=== PATIENT | female | born 1990 | race Caucasian/White ===

== ENCOUNTER 2017-08-18 12:32 | Emergency (ER) | payer OTHER ==
[~2017-08-18] VITALS: Ht 154.9 cm; Wt 69.4 kg
--- OUTSIDE RECORDS SUMMARY | ~2017-08-18 | XMS ---
Demographics + + + | Address | [address] | | | [place] [address] | + + + | Preferred Language | Unknown | + + + | Marital Status | Unknown | + + + | Restoration Affiliation | Unknown | + + + | Race | Unknown | + + + | Ethnic Group | Unknown | + + + Author + + + | Author | [facility] | + + + | Organization | [facility] | + + + | Address | [address] | | | [place] [address] | + + + | Phone | | + + + Care Team Providers + + + + | Care Pulverizer Feeder Name | Role | Phone | + + + + Unavailable | Unavailable | + + + + PROBLEMS + + + + + + + + | Type | Condition | ICD9-CM | [id number] | Onset | Condition | SNOMED | | | | Code | Code | Dates | Status | Code | + + + + + + + + | Problem | Depression | | F41.8 | | Active | [id number] | | | with | | | | | | | | anxiety | | | | | | + + + + + + + + | Problem | Acute | G44.319 | | | Active | | | | headache | | | | | | | | secondary | | | | | | | | to trauma | | | | | | + + + + + + + + | Problem | Primary | | F51.01 | | Active | [id number] | | | insomnia | | | | | | + + + + + + + + | Assessment | Depression | | F41.8 | 19 Apr, | Active | [id number] | | | with | | | 2017 | | | | | anxiety | | | | | | + + + + + + + + | Problem | Radiculopa | M54.17 | | | Active | [id number] | | | thy of | | | | | | | | lumbosacra | | | | | | | | l region | | | | | | + + + + + + + + | Problem | Migraine | | G43.509 | | Active | | | | aura, | | | | | | | | persistent | | | | | | + + + + + + + + ALLERGIES + + + + +--------+ | Substance | Reaction | Event Type | Date | Status | + + + + +--------+ | Codeine | hives | Drug Allergy | Dec, | Active | + + + + +--------+ | Vicodin | hives | Drug Allergy | Dec, | Active | + + + + +--------+ | Percocet | throat swelling | Drug Allergy | Dec, | Active | + + + + +--------+ | Ibuprofen | throat swells | Drug Allergy | Dec, | Active | + + + + +--------+ SOCIAL HISTORY No smoking Hx information available PLAN OF CARE VITAL SIGNS + + + + | Height | 61 in | 2016-12-29 | + + + + | Weight | 170.6 lbs | 2016-12-29 | + + + + | BMI | 32.23 kg/m2 | 2016-12-29 | + + + + | Temperature | 98.5 degrees Fahrenheit | 2016-12-29 | + + + + | Heart Rate | 87 /min | 2016-12-29 | + + + + | Blood pressure systolic | 119 mm Hg | 2016-12-29 | + + + + | Blood pressure diastolic | 81 mm Hg | 2016-12-29 | + + + + MEDICATIONS + + + + +--------+ + +--------+ | Medicati | Instruct | Dosage | Frequenc | Start | End Date | Duration | Status | | on | ions | | y | Date | | | | + + + + +--------+ + +--------+ | Sertrali | Orally | 1 tablet | 24h | | | 15 | Active | | ne HCl | Once a | | | | | day(s) | | | 25 MG | day | | | | | | | + + + + +--------+ + +--------+ | Ultram | Oral bid | 1 tab | 12h | | | | Active | | 50mg | | | | | | | | + + + + +--------+ + +--------+ RESULTS No Results PROCEDURES + + + + + | Procedure | Date Ordered | Related Diagnosis | Body Site | + + + + + | Est Level IV | December 29, 2016 | | | | Extended | | | | + + + + + IMMUNIZATIONS No Known Immunizations"
--- OUTSIDE RECORDS SUMMARY | ~2017-08-18 | XMS ---
Demographics + + + | Address | [address] | | | [place] [address] | + + + | Preferred Language | Unknown | + + + | Marital Status | Unknown | + + + | Temple Affiliation | Unknown | + + + | Race | Unknown | + + + | Ethnic Group | Unknown | + + + Author + + + | Author | [facility] | + + + | Organization | [facility] | + + + | Address | [address] | | | [place] [address] | + + + | Phone | | + + + Care Team Providers + + + + | Care Program Director Scouting Name | Role | Phone | + + + + Unavailable | Unavailable | + + + + PROBLEMS +---------+ + + +--------+ + + | Type | Condition | ICD9-CM | [id number] | Onset | Condition | SNOMED | | | | Code | Code | Dates | Status | Code | +---------+ + + +--------+ + + | Problem | Depression | | F41.8 | | Active | [id number] | | | with | | | | | | | | anxiety | | | | | | +---------+ + + +--------+ + + | Problem | Acute | G44.319 | | | Active | | | | headache | | | | | | | | secondary | | | | | | | | to trauma | | | | | | +---------+ + + +--------+ + + | Problem | Primary | | F51.01 | | Active | [id number] | | | insomnia | | | | | | +---------+ + + +--------+ + + | Problem | Radiculopa | M54.17 | | | Active | [id number] | | | thy of | | | | | | | | lumbosacra | | | | | | | | l region | | | | | | +---------+ + + +--------+ + + | Problem | Migraine | | G43.509 | | Active | | | | aura, | | | | | | | | persistent | | | | | | +---------+ + + +--------+ + + ALLERGIES Unknown Allergies SOCIAL HISTORY No smoking Hx information available PLAN OF CARE VITAL SIGNS MEDICATIONS Unknown Medications RESULTS No Results PROCEDURES No Known procedures IMMUNIZATIONS No Known Immunizations"
[~2017-08-18 12:32] MED LIST: ACETAMINOPHEN325 M1 PO; AMOXICILLIN500 MG PO; AMOXICILLIN875 MG PO; CIPRO500 MG PO; EPIPEN 2-P0.3 MG/0.3 IM; HYDROCOD-HOMAT 55 ML PO; PREDNISONE20 MG PO; PRENATAL 19 TA1 EACH PO; PRENATAL FORMU1 EACH PO; PROZAC20 MG PO; ROBAXIN-750750 MG PO; TRAMADOL HCL50 MG PO; TYLENOL EXTRA500 MG PO; ULTRAM50 MG PO; VITAMIN B-1250 MCG PO; WELLBUTRIN SR100 MG PO; WELLBUTRIN SR150 MG PO; ZOFRAN ODT8 MG PO; ZOFRAN4 MG PO
== END 2017-08-18 12:55 | disposition home or self-care (01) ==
LOC: ED 12:32
DX: R21 Rash and other nonspecific skin eruption (principal)

== ENCOUNTER 2018-07-16 00:57 | Emergency (ER) | payer OTHER ==
[~2018-07-16] VITALS: Ht 157.5 cm; Wt 82.5 kg
--- OUTSIDE RECORDS SUMMARY | 2018-07-16 01:02 | XMS ---
PreManage Notification: ZEE ARREGUIN Security Financial Planner Events No recent Security Events currently on file CRITERIA MET - Group Notification - [facility] - Has Care Guidelines - [facility] - 2 Visits in 30 Days CARE PROVIDERS TUYET WHITTEN Primary Care 12/11/2016-Current PHONE: [phone] Guidelines Source: [facility] Guidelines Date: 03/18/2017 Care Coordination: ENCOURAGE PATIENT TO USE PCP FOR FOLLOW UP AND NON-EMERGENT PROBLEMS. GIVE PATIENT THIS SHIM PLUG CUTTER NAME AND NUMBER FOR HELP AND QUESTIONS. 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 NOTE: Visits indicate total known visits. ED/UCC VISIT TRACKING (12 MO.) 07/16/2018 00:58 LUIGI Lennon TYPE: Emergency COMPLAINT: - 17 WEEK PREG-BACK/CRAMPIN 07/07/2018 15:45 LUIG[facility] Lennon TYPE: Emergency COMPLAINT: - L FOOT PAIN/INJURY/MSE TO CLINIC DIAGNOSES: - Pain in left foot 01/30/2018 21:40 [facility] Alana NOEL TYPE: Emergency DIAGNOSES: - poss misscariage (14-16wks) - Right lower quadrant pain - Abnormal uterine and vaginal bleeding, unspecified - Left lower quadrant pain - Threatened Miscarriage 11/27/2017 01:03 [facility] [place] TYPE: Emergency COMPLAINT: - R SHOULDER PAIN, BACK PAIN/NO INJURY DIAGNOSES: - Dizziness and giddiness - Syncope and collapse - Allergy status to analgesic agent status - Allergy status to narcotic agent status 08/18/2017 12:32 [facility] [place] TYPE: Emergency COMPLAINT: - RASH DIAGNOSES: - Rash and other nonspecific skin eruption INPATIENT VISIT TRACKING (12 MO.) No inpatient visits to display in this time frame [email or web address]
[2018-07-16] MEDS ORDERED: FIORINAL 50-321 EACH PO (01:08)
[2018-07-16] MEDS ORDERED: PRENATAL 19 TA1 EAC1 PO (01:08)
[2018-07-16] MEDS ORDERED: CEPHALEXIN500 MG PO (03:55)
== END 2018-07-16 04:07 | disposition home or self-care (01) ==
LOC: ED 00:57
DX: O23.42 Unspecified infection of urinary tract in pregnancy, second trimester (principal); O16.2 Unspecified maternal hypertension, second trimester; O99.89 Other specified diseases and conditions complicating pregnancy, childbirth and the puerperium; G43.909 Migraine, unspecified, not intractable, without status migrainosus; Z88.5 Allergy status to narcotic agent; Z88.8 Allergy status to other drugs, medicaments and biological substances; Z79.899 Other long term (current) drug therapy; Z3A.17 17 weeks gestation of pregnancy
CPT/HCPCS: 80053; 81001; 85025; 87077; 87088; 87186; 96361; 96374; 99283; J0696; J7030

== ENCOUNTER 2018-12-22 00:05 | Inpatient (IN) | payer OTHER ==
[~2018-12-22] VITALS: Ht 154.9 cm; Wt 91.0 kg
[~2018-12-22 00:05] MED LIST changes: +CEPHALEXIN500 MG PO; +FIORINAL 50-321 EACH PO; +PRENATAL 19 TA1 EAC1 PO
--- NOTE | 2018-12-22 07:05 | PR ---
[facility] [address] [facility] [place] [address] Signed Progress Notes IP Datetime Report Generated by CPN: 12/22/2018 07:05 PROGRESS NOTES: [id number] Impression: Normal progression of labor Procedures: Artificial ROM Plan: Continue present management; Anticipate Vaginal Delivery VITAL SIGNS: [id number] Vital Signs: Reviewed; Within Normal Limits VS Notable Details: Q 3" contractions but no cervical changes and high presenting part. EXAM: [id number] Dilatation: 5.0 Effacement: 50 Station: -3 Uterine Contractions: every 2-3 minutes MEMBRANES: [id number] Pooling: Negative Membrane Status: Ruptured Amniotic Fluid Color: Clear ROM Note: AROM without difficulty Comments: Contractions getting uncomfortable, would like Epidural - ordered Fetus A: [id number] FHR Baseline: 145 Variability: Moderate 6-25bpm Accelerations: 15X15 Decelerations: None FHR Category: Category I Presentation: Vertex Fetus B: [id number] Signing Physician: Jose Aceves MD Copies: ~ *Electronically Signed* 12/22/18 0705 JOSE ACEVES MD PATIENT NAME: ZEE ARREGUIN PROGRESS NOTE DATE OF : [birth year] PHYSICIAN: JOSE ACEVES MD RPT #: [id number] REPORT IS CONFIDENTIAL AND NOT TO BE RELEASED WITHOUT AUTHORIZATION
--- NOTE | 2018-12-22 09:20 | PR ---
[facility] [address] [facility] [place], [place] [address] Signed Progress Notes IP Datetime Report Generated by CPN: 12/22/2018 09:20 PROGRESS NOTES: [id number] Impression: Normal progression of labor Procedures: Artificial ROM Plan: Continue present management; Anticipate Vaginal Delivery VITAL SIGNS: [id number] Vital Signs: Reviewed; Within Normal Limits VS Notable Details: Q 3" contractions but no cervical changes and high presenting part. EXAM: [id number] Dilatation: 9.0 Effacement: 90 Station: -1 Uterine Contractions: every 2-3 minutes MEMBRANES: [id number] Pooling: Negative Membrane Status: Intact ROM Note: AROM without difficulty Comments: Comfortable with Intrathecal, expect delivery soon. Fetus A: [id number] FHR Baseline: 140 Variability: Moderate 6-25bpm Accelerations: 15X15 Decelerations: None FHR Category: Category I Presentation: Vertex Fetus B: [id number] Signing Physician: Jose Aceves MD Copies: ~ *Electronically Signed* 12/22/18 0920 JOSE ACEVES MD PATIENT NAME: ZEE ARREGUIN PROGRESS NOTE DATE OF : [birth year] PHYSICIAN: JOSE ACEVES MD RPT #: [id number] REPORT IS CONFIDENTIAL AND NOT TO BE RELEASED WITHOUT AUTHORIZATION
--- NOTE | 2018-12-23 09:01 | PR ---
[facility] [address] [facility] [place] [address] Signed PP Progress Notes Datetime Report Generated by CPN: 12/23/2018 09:01 SUBJECTIVE: [id number] Pain: Within normal limits Nausea/Vomiting: Denies Vital Signs: [id number] Vital Signs: Reviewed; Within Normal Limits EXAM: [id number] Abdomen/Uterus: Normal Lochia: Normal Extremities: Normal IMPRESSION/PLAN/PROCEDURES: [id number] Impression: Normal progression Plan: Discharge Procedures: None Progress Notes: Doing well, without complaint, minimal bleeding, wants to go home Signing Physician: Jose Aceves MD Copies: ~ *Electronically Signed* 12/23/18900 JOSE ACEVES MD PATIENT NAME: ZEE ARREGUIN PROGRESS NOTE DATE OF : [birth year] PHYSICIAN: JOSE ACEVES MD RPT #: [id number] REPORT IS CONFIDENTIAL AND NOT TO BE RELEASED WITHOUT AUTHORIZATION
== END 2018-12-23 10:55 | disposition home or self-care (01) | DRG 806 ==
LOC: FBC 00:05
PROVIDERS: ADMIT General Practice
PROC: 10E0XZZ Delivery of Products of Conception, External Approach (ICD-10-PCS; principal; 2018-12-22)
PROC: 10907ZC Drainage of Amniotic Fluid, Therapeutic from Products of Conception, Via Natural or Artificial Opening (ICD-10-PCS; 2018-12-22)
PROC: 3E0P7VZ Introduction of Hormone into Female Reproductive, Via Natural or Artificial Opening (ICD-10-PCS; 2018-12-22)
PROC: 00HU33Z Insertion of Infusion Device into Spinal Canal, Percutaneous Approach (ICD-10-PCS; 2018-12-22)
PROC: 3E0R3BZ Introduction of Anesthetic Agent into Spinal Canal, Percutaneous Approach (ICD-10-PCS; 2018-12-22)
DX: O43.113 Circumvallate placenta, third trimester (principal); O99.354 Diseases of the nervous system complicating childbirth; Z37.0 Single live birth; Z3A.39 39 weeks gestation of pregnancy; F31.9 Bipolar disorder, unspecified; O99.344 Other mental disorders complicating childbirth; G43.909 Migraine, unspecified, not intractable, without status migrainosus; Z87.440 Personal history of urinary (tract) infections; Z79.2 Long term (current) use of antibiotics; Z79.899 Other long term (current) drug therapy; Z88.5 Allergy status to narcotic agent; Z88.8 Allergy status to other drugs, medicaments and biological substances
CPT/HCPCS: 01960; 36415; 85027; J2590; J7060; J7120

== ENCOUNTER 2019-08-15 | Emergency (ER) | payer OTHER ==
[~2019-08-15] VITALS: Ht 154.9 cm; Wt 82.6 kg
== END 2019-08-15 02:20 | disposition home or self-care (01) ==
LOC: ED
DX: O99.89 Other specified diseases and conditions complicating pregnancy, childbirth and the puerperium (principal); R10.11 Right upper quadrant pain; Z88.8 Allergy status to other drugs, medicaments and biological substances; Z88.5 Allergy status to narcotic agent
CPT/HCPCS: 76801; 76817; 80053; 81001; 83690; 84702; 84703; 85025; 96361; 96374; 99284-25; J2405; J7030

== ENCOUNTER 2020-02-06 17:01 | Emergency (ER) | payer OTHER ==
[~2020-02-06] VITALS: Ht 154.9 cm; Wt 82.6 kg
== END 2020-02-06 18:15 | disposition home or self-care (01) ==
LOC: ED 17:01
DX: S09.90XA Unspecified injury of head, initial encounter (principal); W22.8XXA Striking against or struck by other objects, initial encounter; Z53.21 Procedure and treatment not carried out due to patient leaving prior to being seen by health care provider

== ENCOUNTER 2020-04-01 19:20 | Emergency (ER) | payer OTHER ==
[~2020-04-01] VITALS: Ht 154.9 cm; Wt 86.3 kg
--- NOTE | 2020-04-02 19:07 | EKG ---
[facility] [address] [facility] [place], [place] [address] Signed Normal sinus rhythm Normal ECG When compared with ECG of 27-NOV-2017 01:49, No significant change was found Confirmed by MARVIN CAM MD ([id number]) on 04/02/2020 7:06:58 PM Electronically Signed By: MARVIN CAM MD 04/02/20 1907 PATIENT NAME: ZEE ARREGUIN Electrocardiogram DATE OF : [birth year] PHYSICIAN: MARVIN CAM MD REPORT #: [id number] REPORT IS CONFIDENTIAL AND NOT TO BE RELEASED WITHOUT AUTHORIZATION
== END 2020-04-01 21:13 | disposition home or self-care (01) ==
LOC: ED 19:20
DX: R07.89 Other chest pain (principal); I10 Essential (primary) hypertension; Z88.5 Allergy status to narcotic agent; Z88.6 Allergy status to analgesic agent
CPT/HCPCS: 71045; 93005; 93010; 99285-25

== ENCOUNTER 2020-07-10 15:18 | Emergency (ER) | payer OTHER ==
[~2020-07-10] VITALS: Ht 154.9 cm; Wt 86.3 kg
[2020-07-10] MEDS ORDERED: MULTIVITAMINS1 EAC7 PO (15:29)
--- NOTE | 2020-07-11 17:21 | EKG ---
[facility] [address] [facility] [place], [place] [address] Signed Normal sinus rhythm Normal ECG When compared with ECG of 01-APR-2020 19:33, No significant change was found Confirmed by JOHANNA NUÑEZ DO ([id number]) on 07/11/2020 5:21:40 PM Electronically Signed By: JOHANNA NUÑEZ DO 07/11/20 1721 PATIENT NAME: ZEE ARREGUIN Electrocardiogram DATE OF : [birth year] PHYSICIAN: JOHANNA NUÑEZ DO REPORT #: [id number] REPORT IS CONFIDENTIAL AND NOT TO BE RELEASED WITHOUT AUTHORIZATION
== END 2020-07-10 19:09 | disposition home or self-care (01) ==
LOC: ED 15:18
DX: R07.89 Other chest pain (principal); G43.909 Migraine, unspecified, not intractable, without status migrainosus; I10 Essential (primary) hypertension; Z88.5 Allergy status to narcotic agent; Z88.8 Allergy status to other drugs, medicaments and biological substances; Z79.899 Other long term (current) drug therapy
CPT/HCPCS: 71045; 71260; 80053; 84484; 84703; 85025; 85379; 93005; 93010; 96360; 96361; 99285-25; J7030; Q9967

== ENCOUNTER 2020-11-28 20:55 | Emergency (ER) | payer OTHER ==
[~2020-11-28] VITALS: Ht 154.9 cm; Wt 86.3 kg
[~2020-11-28 20:55] MED LIST changes: +MULTIVITAMINS1 EAC7 PO
[2020-11-29] MEDS ORDERED: DILAUDID2 MG PO (00:09)
[2020-11-29] MEDS ORDERED: ZOFRAN4 MG PO (00:14)
== END 2020-11-29 00:10 | disposition home or self-care (01) ==
LOC: ED 20:55
DX: O99.891 Other specified diseases and conditions complicating pregnancy (principal); R10.2 Pelvic and perineal pain; Z88.8 Allergy status to other drugs, medicaments and biological substances; Z88.5 Allergy status to narcotic agent
CPT/HCPCS: 76801; 76817; 96374; 96375; 96376; 99284-25; J2405; J3010

== ENCOUNTER 2021-03-05 23:10 | Emergency (ER) | payer OTHER ==
[~2021-03-05] VITALS: Ht 154.9 cm; Wt 86.3 kg
[~2021-03-05 23:10] MED LIST changes: +DILAUDID2 MG PO
[2021-03-06] MEDS ORDERED: PREDNISONE20 MG PO (01:50)
[2021-03-07] MEDS ORDERED: ZOFRAN4 MG PO (00:50)
== END 2021-03-06 02:00 | disposition home or self-care (01) ==
LOC: ED 23:10
DX: M54.9 Dorsalgia, unspecified (principal); G43.909 Migraine, unspecified, not intractable, without status migrainosus; Z88.5 Allergy status to narcotic agent; Z88.8 Allergy status to other drugs, medicaments and biological substances
CPT/HCPCS: 74176; 80053; 81001; 84703; 85025; 96374; 96375; 99284-25; J1100; J1170; J2405

== ENCOUNTER 2021-03-06 22:52 | Emergency (ER) | payer OTHER ==
[~2021-03-06] VITALS: Ht 154.9 cm; Wt 85.8 kg
[2021-03-07] MEDS ORDERED: ZOFRAN4 MG PO (00:50)
== END 2021-03-07 01:41 | disposition home or self-care (01) ==
LOC: ED 22:52
DX: R10.31 Right lower quadrant pain (principal); G43.909 Migraine, unspecified, not intractable, without status migrainosus; Z88.5 Allergy status to narcotic agent; Z88.8 Allergy status to other drugs, medicaments and biological substances; Z79.52 Long term (current) use of systemic steroids
CPT/HCPCS: 81001; 99284

== ENCOUNTER 2022-06-01 10:44 | Emergency (ER) | payer OTHER ==
[~2022-06-01] VITALS: Ht 154.9 cm; Wt 88.6 kg
[~2022-06-01 10:44] MED LIST changes: +WELLBUTRIN XL300 MG PO
[2022-06-01] MEDS ORDERED: EPIPEN 2-P0.3 MG/0.3 IM (11:10)
[2022-06-01] MEDS ORDERED: PREDNISONE20 MG PO (23:30)
[2022-06-01] MEDS ORDERED: PEPCID20 MG PO (23:32)
== END 2022-06-01 11:47 | disposition home or self-care (01) ==
LOC: ED 10:44
DX: T78.2XXA Anaphylactic shock, unspecified, initial encounter (principal); G43.909 Migraine, unspecified, not intractable, without status migrainosus; Z88.5 Allergy status to narcotic agent; Z88.8 Allergy status to other drugs, medicaments and biological substances
CPT/HCPCS: 96372; 99284; J0171

== ENCOUNTER 2022-06-01 18:53 | Emergency (ER) | payer OTHER ==
[~2022-06-01] VITALS: Ht 154.9 cm; Wt 88.5 kg
[2022-06-01] MEDS ORDERED: PREDNISONE20 MG PO (23:30)
[2022-06-01] MEDS ORDERED: PEPCID20 MG PO (23:32)
== END 2022-06-01 23:56 | disposition home or self-care (01) ==
LOC: ED 18:53
DX: L50.0 Allergic urticaria (principal); G43.909 Migraine, unspecified, not intractable, without status migrainosus; Z88.5 Allergy status to narcotic agent; Z88.8 Allergy status to other drugs, medicaments and biological substances; Z79.899 Other long term (current) drug therapy
CPT/HCPCS: 36415; 80053; 81001; 83540; 83550; 84703; 85025; 96374; 96375; 96376; 99283-25; A9270; J1200; J2930; J7121

== ENCOUNTER 2022-06-02 11:50 | Emergency (ER) | payer OTHER ==
[~2022-06-02] VITALS: Ht 154.9 cm; Wt 88.6 kg
[~2022-06-02 11:50] MED LIST changes: +PEPCID20 MG PO
--- NOTE | 2022-06-03 20:12 | EKG ---
[facility] [address] [facility] [place] [address] Signed Normal sinus rhythm with sinus arrhythmia Normal ECG When compared with ECG of 10-JUL-2020 15:35, No significant change was found Confirmed by Ameena Banuelos MD () on 06/03/2022 8:12:38 PM Electronically Signed By: AMEENA BANUELOS MD 06/03/222011 PATIENT NAME: ZEE ARREGUIN Electrocardiogram DATE OF : [birth year] PHYSICIAN: AMEENA BANUELOS MD REPORT #: [id number] REPORT IS CONFIDENTIAL AND NOT TO BE RELEASED WITHOUT AUTHORIZATION
== END 2022-06-02 13:40 | disposition home or self-care (01) ==
LOC: ED 11:50
DX: L50.9 Urticaria, unspecified (principal); R07.2 Precordial pain
CPT/HCPCS: 93005; 93010; 99284-25

== ENCOUNTER 2022-08-26 19:40 | Observation (INO) | payer OTHER ==
[~2022-08-26] VITALS: Ht 154.9 cm; Wt 91.3 kg
--- NOTE | 2022-08-27 00:16 | NUR ---
pt ARRIVED TO [facility] FLOOR VIA ED STRETCHER AT THIS TIME. REPORT RECEIVED FROM [facility]A ED RN AT BEDSIDE. VSS, pt AWAKE AND RESTING IN BED. REPORTS TOLERABLE 3/10 PAIN-DENIES NEED FOR PAIN MEDICATION AT THIS TIME. SKIN ASSESSMENT COMPLETE, TATTOO NOTED TO BACK-OLD PER pt. NO ADDITIONAL NEEDS, CALL LIGHT IN REACH.
--- NOTE | 2022-08-27 04:22 | NUR ---
CALL LIGHT ANSWERED, pt REPORTS 6/10 PAIN, PRN PAIN MEDICATION GIVEN-SEE EMAR. COOL RAG ALSO APPLIED TO FACE FOR COMFORT. IV SITES X2 REMAINS WNL, FLUIDS INFUSING DIRECTED. NO ADDITIOANL NEEDS, NO ACUTE CHANGES TO ASSESSMENT. CALL LIGHT IN REACH.
--- NOTE | 2022-08-27 05:29 | NUR ---
rounded on pt, pt resting quietly in bed on ra. rr even and unlabored. no distress noted. call light in reach. will continue to monitor pain.
--- NOTE | 2022-08-27 06:50 | NUR ---
SCHEDULED IV ABX INFUSING DIRECTED, IV SITE WNL. NO NEEDS OR CONCERNS VERBALIZED. CALL LIGHT IN REACH.
--- NOTE | 2022-08-27 07:00 | NUR ---
pt SCORED A MODERATE RISK ON THE SUICIDE RISK ASSESSMENT, PER PROTOCOL- pt TO BE GIVEN A REFERRAL TO [facility] AND BE GIVEN THE # FOR THE SUICIDE HOTLINE AT DISCHARGE. NURSE NOTIFY IN PLACE. pt ONLY SCORED A MODERATE RISK D/T SUICIDE ATTEMPT A TEENAGER. pt DENIES THOUGHTS, FEELINGS, OR PLAN TO COMMITT SUICIDE AT TIME OF ADMISSION. pt STATES, "I HAD MY DAUGHTER AND SHE SAVED ME". PER PROTOCOL, BEHAVIOR HEALTH CONSULT IS TO BE ORDERED. DISCUSSED WITH IRRIGATION WORKER MYRNA AND HE INSTRUCTED THIS RN TO HAVE DAYSHIFT RN (SAI) DISCUSS NEED FOR CONSULT WITH PRIMARY MD. DAYSHIFT RN SAI MADE AWARE.
--- NOTE | 2022-08-27 08:02 | NUR ---
recieved shift report. pt resting in bed. call light within reach.
--- NOTE | 2022-08-27 08:06 | NUR ---
SPOKE TO GEOVANNA REGARDING PT POTASSIUM, 3.1 AND MAG, 1.7. GEOVANNA GAVE TELEPHONE ORDER TO GIVE 2G MAG. SULFATE ONCE, THEN GIVE 20MEQ OF POTASSIUM CHLORIDE AND REPEAT THE POTASSIUM.
--- NOTE | 2022-08-27 08:33 | NUR ---
PT DID NOT WANT UP THIS AM. PT HAS NO OTHER NEEDS AT THIS TIME. INDP IN ROOM. CALL LIGHT WITHIN REACH.
--- NOTE | 2022-08-27 09:15 | NUR ---
MORNING ASSESSMENT COMPLETE. PT RESTING IN BED, AWAKE. BOWELTONES HYPOACTIVE IN ALL QUADRANTS. REPORTS PAIN 6/10, PT REQUESTED PAIN MEDICATION. DENIES NAUSEA AT THIS TIME. DENIES FURTHER NEEDS AT THIS TIME. CALL LIGHT WITHIN REACH
--- NOTE | 2022-08-27 10:03 | NUR ---
PATIENT VITALS COMPLETED. PRE-OP [place] ALSO COMPLETED. PT HAS NO OTHER NEEDS AT THIS TIME. CALL LIGHT WITHIN REACH.
--- NOTE | 2022-08-27 10:35 | NUR ---
PT COMPLAINED OF NAUSEA. ADMINISTERED PRN ZOFRAN (PER EMAR).
--- NOTE | 2022-08-27 10:55 | NUR ---
PT LEFT FOR SURGERY AT THIS TIME.
--- NOTE | 2022-08-27 13:38 | NUR ---
08/27/22 1923 Hayley Jackson 1337 PATIENT ARRIVES TO PACU UNRESONSIVE TO PAIN, ORAL AIRWAY IN PLACE, REQUIRES RN TO HOLD CHIN LIFT TO MAINTAIN PATENT AIRWAY. RESP EVEN AND UNLABORED, MASK AT 10 LITERS DECREASED TO 6 LITERS.
--- NOTE | 2022-08-27 14:49 | NUR ---
PT ARRIVES BACK TO MED SURG ROOM #121 AT 1430. PT REPORTS PAIN A 2/10, DENIES NAUSEA. PT DENIES WANTING ANYTHING FOR PAIN AT THIS TIME. RESP EVEN AND UNLABORED. OXYGEN SAT MID 90'S ON RA. PT PLACED ON CONTINUOUS PULSE OX. PT MESSAGING ON HER PHONE. AFTER PT IS DONE TEXTING SHE FALLS TO SLEEP. REPORT GIVEN TO GARY BURNS RN. BED RAILS UP X3, CALL LIGHT WITHIN REACH, BED IN LOWEST POSITION, BED PLUGGED IN.
--- NOTE | 2022-08-27 14:51 | NUR ---
JUST RETURED FROM RECOVERY,SLEEPING AT THIS TME.UNABLE TO DO CASE MANAGEMENT ASSESSMENT SINCE SHE IS SLEEPING.WILL RETURN LATER.
--- NOTE | 2022-08-27 15:30 | NUR ---
PT RESTING IN BED, DROWSY BUT EASY TO AROUSE. RATES PAIN 4/10. INCISION SITES REMAINS COVERED WITH STERI STRIPS. CPOX AT BEDSIDE, SPO2 96% ON ROOM. BREATHING EVEN AND UNLABORED. CALL LIGHT WITHIN REACH.
--- NOTE | 2022-08-27 16:30 | NUR ---
POST OP ASSESSMENT COMPLETE. PT RESTING IN BED. ABLE TO AMBULATE TO RESTROOM, STAND BY ASSIST. RATES PAIN 2/10. CPOX IN PLACE SPO2 96% RA, HR 70, BREATHING EVEN AND UNLABORED. STERI STRIP NEAR UMBILICUS SCANT AMOUNT OF RED DRAINAGE. SURGICAL INCISION ON RIGHT ABD AND UPPER MIDLINE CLEAN AND INTACT. CALL LIGHT WITHIN REACH. FAMILY AT BEDSIDE.
--- NOTE | 2022-08-27 17:41 | NUR ---
POST OP ASSESSMENT COMPLETE. RATES PAIN 5/10. VSS. CPOX IN PLACE SPO2 97% RA, HR 64, BREATHING EVEN AND UNLABORED. NO NEW CHANGES TO SURGICAL SITES. PT ATE 50% OF DINNER AND TOLERATED WELL. NO NAUSEA. DENIES FURTHER NEEDS. CALL LIGHT WITHIN REACH.
--- NOTE | 2022-08-27 18:01 | NUR ---
GEOVANNA NOTIFED REGARDING PT BEING MOD RISK FROM SUICIDE SCREENING FORM. NO NEW ORDERS.
--- NOTE | 2022-08-27 20:02 | NUR ---
REPORT RECEIVED FROM DAY SHIFT RN. PT LYING IN BED RESTING WITH EYES CLOSED. RESPIRATIONS EVEN. CALL LIGHT IN REACH. WHITE BOARD UPDATED.
--- NOTE | 2022-08-27 21:05 | NUR ---
EVENING ASSESSMENT COMPLETE. SCHEDULED MEDS ADMIN PER EMAR. PT REPORTS ABD PAIN TOLERABLE /10. DENIES NAUSEA. UP TO BR WITH MINIMAL ASSIST TO VOID. BACK TO BED. SCD'S IN PLACE. LAP SITES X [address]. SMALL AMOUNT SEROSANG DRAINAGE. BOWEL TONES ACTIVE. PT REPORTS FLATUS. ABD SOFT. CLEAR LIQUIDS PROVIDED. PT DENIES QUESTIONS OR CONCERNS. CALL LIGHT IN REACH.
--- NOTE | 2022-08-27 21:30 | NUR ---
PT RETURNED FROM THE TOILET, ASKED TO SIT UP IN THE CHAIR INSTEAD, CPOX CONNECTED, NO FURHTER NEEDS AT THIS TIME, IN TO VISIT
--- NOTE | 2022-08-27 22:30 | NUR ---
CALL LIGHT ANSWERED. PT REPORTS INCREASED ABD PAIN /. PRN FOR PAIN ADMIN PER EMAR. FAMILY AT BEDSIDE. NO FURTHER NEEDS.
--- NOTE | 2022-08-27 23:20 | NUR ---
IN TO REFILL ICE WATER, PT HAD A QUESTION ABOUT UMBILICAL LAP SITE, INFORMED RN
--- NOTE | 2022-08-28 02:15 | NUR ---
IN TO GET 2AM VITAL, PT UP TO THE CHAIR, INDEPENDETLY TO THE TOILET
--- NOTE | 2022-08-28 02:23 | NUR ---
PT AWAKE SITTING IN RECLINER. REPORTS ABD PAIN TOLERABLE. DENIES NAUSEA. IV ABX INFUSING PER ORDER. NO FURTHER NEEDS.
--- NOTE | 2022-08-28 04:41 | NUR ---
IV PUMP ALARMING. NEW BAG IVF INFUSING WNL. PT RESTING WITH EYES CLOSED. RESPIRATIONS EVEN.
--- NOTE | 2022-08-28 06:12 | NUR ---
PT AWAKENED FOR VS AND I&O. REPORTS ABD PAIN 11/19. PRN FOR PAIN ADMIN PER EMAR. DENIES NAUSEA. UP TO BR WITH MINIMAL ASSIST TO VOID. GAIT STEADY. BACK TO BED. DENIES FURTHER NEEDS.
--- NOTE | 2022-08-28 07:47 | NUR ---
recieved shift report. pt awake in bed. denies further needs. call light within reach.
--- NOTE | 2022-08-28 08:17 | NUR ---
MORNING ASSESSMENT COMPLETE. PAIN RATED 4/10, BUT TOLERABLE. INCISION SITES STERI STRIPS INTACT. UMBILICUS SITE SCANT SEROSANG DRAINAGE. TELE IN PLACE. CPOX IN PLACE SPO2 95% ON RA. DENIES NAUSEA. CALL LIGHT WITHIN REACH.
--- NOTE | 2022-08-28 09:53 | NUR ---
PATIENT IN BED AFTER MEAL. VITALS AND I/O'S COMPLETED. PT HAS NO OTHER NEEDS AT THIS TIME. CALL LIGHT WITHIN REACH.
[2022-08-28] MEDS ORDERED: ACETAMINOPHEN500 MG PO (10:33)
--- NOTE | 2022-08-28 19:02 | EKG ---
[facility] [address] [facility] [place] [address] Signed Normal sinus rhythm Normal ECG When compared with ECG of 02-JUN-2022 11:49, No significant change was found Confirmed by COBY SHERWOOD MD ([id number]) on 08/28/2022 7:01:56 PM Electronically Signed By: COBY SHERWOOD MD 08/28/221901 PATIENT NAME: ZEE ARREGUIN Electrocardiogram DATE OF : [birth year] PHYSICIAN: COBY SHERWOOD MD REPORT #: [id number] REPORT IS CONFIDENTIAL AND NOT TO BE RELEASED WITHOUT AUTHORIZATION
--- NOTE | 2022-09-01 14:36 | PATH ---
[facility] [address] [place], [place] [address] Signed SPECIMEN(S): A APPENDIX SPECIMEN SOURCE: A. APPENDIX CLINICAL HISTORY: Acute appendicitis. FINAL PATHOLOGIC DIAGNOSIS: Appendix, appendectomy: - Acute suppurative appendicitis, periappendicitis, and serositis. - Focal mucosal necrosis. JVR:abraham:C2NR MICROSCOPIC EXAMINATION: Histologic sections of all submitted blocks are examined by light microscopy. These findings, together with the gross examination, support the pathologic diagnosis. GROSS DESCRIPTION: The specimen, labeled and designated "bernard Pearce," is received in formalin and consists of Specimen: Appendix with mesoappendix. Dimensions: 8.4 by up to 0.8 cm. Serosa: Flores with areas of lopes-flores exudate. Defect: Not grossly identified. Inking: Staple line is inked Blue. Mucosa: Flores and measures 0.3 cm in greatest thickness. Fecalith: Not grossly identified. Additional: None. Air Chipper sections are submitted in (A1). HH (under the direct supervision of a pathologist) The Gross Description was prepared using a voice recognition system. The report was reviewed for accuracy; however, sound-alike word errors, addition and/or deletions may occur. If there is any question about this report, please contact Client Services. PERFORMING LABORATORY: The technical component was performed by [facility], [address] [place] [address] (CLIA# [id number]). Professional interpretation was performed by [facility] PATIENT NAME: ZEE PEARCE PATHOLOGY DATE OF : [birth year] REPORT #: [id number] PHYSICIAN: PIERO PATHOLOGY PCP: NO PRIMARY CARE PHYSICIAN REPORT IS CONFIDENTIAL AND NOT TO BE RELEASED WITHOUT AUTHORIZATION [facility] [address] [place], [place] [address] [place] [address] (CLIA#: [id number]). Diagnostician: Kilo France MD Pathologist Electronically Signed 09/01/2022 Copies: ~ PATIENT NAME: ZEE PEARCE PATHOLOGY DATE OF : [birth year] REPORT #: [id number] PHYSICIAN: PIERO PATHOLOGY PCP: NO PRIMARY CARE PHYSICIAN REPORT IS CONFIDENTIAL AND NOT TO BE RELEASED WITHOUT AUTHORIZATION
--- NOTE | 2022-09-01 16:53 | DS ---
[facility] [address] [place], [place] [address] Signed ADMISSION DATE: 08/26/2022 DISCHARGE DATE: 08/28/2022 REASON FOR ADMISSION: Acute appendicitis. HISTORY OF PRESENT ILLNESS: This 31-year-old white woman presented to the emergency room, was evaluated by Dr. Pereira with complaints of right lower abdominal pain and tenderness. A CT scan performed confirmed appendicitis. Her white count was elevated at 17.3, potassium 3.2, creatinine 0.94. She is admitted for further evaluation and care. PERTINENT PHYSICAL EXAMINATION: GENERAL: Showed an obese white woman who looks to be uncomfortable. NECK: Trachea is midline. CHEST: Clear. HEART: Regular without murmur. ABDOMEN: Obese and soft. Rovsing's sign was negative. She did have tenderness in the right lower quadrant with localized peritonitis. She was incidentally noted on serology test to be positive for influenza A. HOSPITAL COURSE: She was admitted given fluid resuscitation, IV antibiotics and taken to operation on August 27, 2022, mindful of her influenza A. She did not have much in the way of influenza symptoms. She underwent laparoscopic appendectomy for retrocecal appendix. Marked inflammation was noted, but there was no evidence of perforation or abscess. Her postoperative course was unremarkable. She was able to be discharged, tolerating a regular diet with minimal incisional pain. FOLLOWUP PLAN: She is return to see me in approximately four weeks; she will call for an appointment on Tuesday. She is advised to lift no more than 20 pounds in the next two weeks. She is permitted to shower tomorrow. DISCHARGE MEDICATION: Will include Tylenol 500 mg two tablets p.o. q.6 hours p.r.n. pain #30 refill x2. It is noted the patient has an extensive medication allergy list including lisinopril, codeine, oxycodone, ibuprofen, hydrocodone, codeine, and thus causing restriction of her options for pain medications. It is likely that Tylenol will be adequate anyway. DISCHARGE DIAGNOSIS: Electronically Signed By: TOSHA AUSTIN MD 09/01/22 1653 PATIENT NAME: ZEE ARREGUIN DISCHARGE SUMMARY DATE OF : [birth year] REPORT #: [id number] PHYSICIAN: TOSHA AUSTIN MD PCP: NO PRIMARY CARE PHYSICIAN REPORT IS CONFIDENTIAL AND NOT TO BE RELEASED WITHOUT AUTHORIZATION [address] [address] Signed 1. Acute retrocecal appendicitis without perforation, status post laparoscopic appendectomy. 2. Obesity. 3. Concurrent influenza A infection with minimal clinical symptoms currently. MD MERRITT Villeda/MODL /[id number] cc: Dr. Pereira Copies: ~ Electronically Signed By: TOSHA AUSTIN MD 09/01/22 1653 PATIENT NAME: ZEE ARREGUIN DISCHARGE SUMMARY DATE OF : [birth year] REPORT #: [id number] PHYSICIAN: TOSHA AUSTIN MD PCP: NO PRIMARY CARE PHYSICIAN REPORT IS CONFIDENTIAL AND NOT TO BE RELEASED WITHOUT AUTHORIZATION
--- NOTE | 2022-09-01 16:53 | OR ---
[facility] [address] [place], [place] [address] Signed DATE OF OPERATION: 08/27/2022 SURGEON: Tosha Austin MD PREOPERATIVE DIAGNOSES: 1. Acute appendicitis. 2. Obesity. POSTOPERATIVE DIAGNOSIS: Acute non-perforated appendicitis, retrocecal. PROCEDURE: Laparoscopic appendectomy. ANESTHESIA: General endotracheal; Tosha Simpson CRNA and local 10 mL of 0.25% Marcaine with epinephrine. INDICATIONS: This 31-year-old white woman, who has had about 24 hours of increasing right lower abdominal pain. She presented to the emergency room in the line director hours today and found on CT scan and clinical exam to have an elevated white count and marked tenderness in the right lower quadrant with a CT scan confirming acute appendicitis. The appendix is dilated and edematous at approximately 10 mm in size. She has been fluid resuscitated given intravenous antibiotics, and now to undergo appendectomy preferred by laparoscopic approach. The risks of bleeding, infection, need for open procedure, and other unforeseen complications was reviewed in detail with her. She understands and wished to proceed. FINDINGS: The appendix was quite markedly inflamed and dilated. It was retrocecal in position. Safe excision was undertaken without problem. There were no other findings of concern. There was no evidence of perforation or gangrenous change and there was no evidence of abscess. DESCRIPTION OF PROCEDURE: The patient was brought to the operating room, given a general endotracheal anesthetic. Preoperative antibiotics had already been given (Unasyn). After satisfactory general endotracheal anesthesia, the abdomen was prepared with a chlorhexidine solution and draped sterilely. An infraumbilical incision was made and using an open Luz cannula Electronically Signed By: TOSHA AUSTIN MD 09/01/22 1653 PATIENT NAME: ZEE ARREGUIN OPERATIVE REPORT DATE OF : [birth year] REPORT #: [id number] PHYSICIAN: TOSHA AUSTIN MD PCP: NO PRIMARY CARE PHYSICIAN REPORT IS CONFIDENTIAL AND NOT TO BE RELEASED WITHOUT AUTHORIZATION [facility] [address] [place], [place] [address] Signed technique, the abdomen entered and pneumoperitoneum achieved to a level of 14 mmHg of carbon dioxide gas. Intra-abdominal inspection showed no sign of ascites or carcinomatosis. There was inflammatory fluid noted in the right pericolic gutter. A 12 mm epigastric port was placed and the camera was placed to that side. With single hand manipulation, the small bowel was retracted to the left and the cecum was identified. The appendix appeared to be retrocecal. The base of the appendix was edematous and slightly inflamed and tending towards the appendix being in a retrocecal position. A right lower quadrant 5 mm port was then placed under direct visualization and with two hand manipulation, the cecum could be more fully evaluated. The appendix was not fully visualized, but was extending in the retroperitoneal position. The base of the appendix could be dissected free with reasonable ease cranial window between the appendix and the cecum. Using an Endo-JARED stapling device, the base of the appendix was transected first with the cecum. The appendix was then elevated and using blunt and electrocautery dissection, the mesoappendix free from the retroperitoneal structures. Sequential application of two loads of an Endo-JARED stapling device was used to secure the mesentery to the appendix. The tip of the appendix was adherent to the retroperitoneum and three clips were used to secure this pedicle, and it was divided. Appendix was placed in an Endobag and extracted through the infraumbilical port site, extracted and passed for Pathology. Irrigation was undertaken of the retrocecal space. There was no sign of ongoing bleeding. The staple line was hemostatic. Excess irrigation, fluid was suctioned free once hemostasis was assured. The trocars removed under direct visualization showing no sign of bleeding. The infraumbilical fascial incision reapproximated with interrupted 0-Vicryl suture in a running 0-PDS suture. A 10 mL of 0.25% Marcaine with epinephrine injected locally. The skin was then closed with interrupted 3-0 Vicryl. Steri-Strips were applied. The patient was ultimately extubated and transferred to the recovery room in good condition, having suffered no complication. Sponge, needle, and instrument counts reported as correct x3. Blood loss was minimal. Tosha Austin MD JM/MODL /[id number] cc: Dr. Pereira Electronically Signed By: TOSHA AUSTIN MD 09/01/22 1653 PATIENT NAME: ZEE ARREGUIN OPERATIVE REPORT DATE OF : [birth year] REPORT #: [id number] PHYSICIAN: TOSHA AUSTIN MD PCP: NO PRIMARY CARE PHYSICIAN REPORT IS CONFIDENTIAL AND NOT TO BE RELEASED WITHOUT AUTHORIZATION [address] [address] Signed Copies: ~ Electronically Signed By: TOSHA AUSTIN MD 09/01/22 1653 PATIENT NAME: ZEE ARREGUIN OPERATIVE REPORT DATE OF : [birth year] REPORT #: [id number] PHYSICIAN: TOSHA AUSTIN MD PCP: NO PRIMARY CARE PHYSICIAN REPORT IS CONFIDENTIAL AND NOT TO BE RELEASED WITHOUT AUTHORIZATION
--- NOTE | 2022-09-02 08:33 | HP ---
[facility] [address] [place], [place] [address] Signed ADMISSION DATE: 08/26/2022 REASON FOR ADMISSION: Acute appendicitis with peritonitis. HISTORY OF PRESENT ILLNESS: This 31-year-old white woman began having right lower abdominal pain essentially yesterday. She was evaluated in the emergency room by Dr. Pereira with clinical findings completely consistent with appendicitis. A CT scan was performed, affirming the diagnosis. She was noted to have an elevated white count of 17.3, decreased potassium of 3.2 and a creatinine of 0.94. She is admitted for further evaluation and care. PAST MEDICAL HISTORY: Relatively unremarkable. She does have allergy to bee sting. Her home medications include only EpiPen as needed. She describes allergies to codeine, hydrocodone, ibuprofen, oxycodone, and lisinopril. PAST SURGICAL HISTORY: Includes tubal ligation, though my review of her CT scan shows possible intrauterine device in the uterus. She uses marijuana on a daily basis, but does not smoke or drink alcohol. SOCIAL HISTORY: The patient is . She does not work outside the home. She has five children. Other medical issues include hypertension, related (not currently), depression, and migraines. REVIEW OF SYSTEMS: She denies any shortness of breath or chest pain. She has had no dysphagia, dysuria, hematemesis, or blood per rectum. Denies dysuria. Her main issue is pain in the right lower abdomen. PHYSICAL EXAMINATION: GENERAL: Somewhat obese white woman, who looks to be uncomfortable. NECK: Trachea is midline. CHEST: Clear. HEART: Regular, without murmur. ABDOMEN: Obese, but soft. Rovsing sign is negative. She does have tenderness in the Electronically Signed By: TOSHA AUSTIN MD 09/02/22 0833 PATIENT NAME: ZEE ARREGUIN HISTORY AND PHYSICAL DATE OF : [birth year] REPORT #: [id number] PHYSICIAN: TOSHA AUSTIN MD PCP: NO PRIMARY CARE PHYSICIAN REPORT IS CONFIDENTIAL AND NOT TO BE RELEASED WITHOUT AUTHORIZATION [facility] [address] [place], [place] [address] Signed right lower quadrant and localized peritonitis. EXTREMITIES: Showed no clubbing, cyanosis, or edema. LABORATORY STUDIES: Show initial white count of 17.3, now down to 11.2; hematocrit 37.9; hematocrit now 33.7, and platelets of 246,000. Chem profile this morning shows potassium at 3.1, potassium has been ordered. Magnesium is 1.7, magnesium has been ordered as well. Coag studies are normal. Urinalysis negative. Tox screen is positive only for marijuana. Serology test is positive for influenza type A. ASSESSMENT: The patient has acute appendicitis with localized peritonitis and concurrent influenza A. PLAN: I would still recommend laparoscopic appendectomy. Repletion of electrolytes is ongoing. She has been given Zosyn antibiotic. The risks of bleeding, infection, need for open procedure, and need for other indicated procedures were reviewed in detail. She understands and agrees to proceed. MD MERRITT Villeda/CHRISTA /[id number] cc: Dr. Pereira Copies: ~ Electronically Signed By: TOSHA AUSTIN MD 09/02/22 0833 PATIENT NAME: ZEE ARREGUIN HISTORY AND PHYSICAL DATE OF : [birth year] REPORT #: [id number] PHYSICIAN: TOSHA AUSTIN MD PCP: NO PRIMARY CARE PHYSICIAN REPORT IS CONFIDENTIAL AND NOT TO BE RELEASED WITHOUT AUTHORIZATION
== END 2022-08-28 11:15 | disposition home or self-care (01) ==
LOC: ED 19:40 → MS 19:42 → ED 23:52 → MS 08-28 11:15
PROVIDERS: ADMIT Surgery; ATTEND Surgery
PROC: 0DTJ4ZZ Resection of Appendix, Percutaneous Endoscopic Approach (ICD-10-PCS; principal; 2022-08-27 09:45)
DX: K35.30 Acute appendicitis with localized peritonitis, without perforation or gangrene (principal); E66.9 Obesity, unspecified; J10.1 Influenza due to other identified influenza virus with other respiratory manifestations; Z20.822 Contact with and (suspected) exposure to COVID-19; Z68.38 Body mass index [BMI] 38.0-38.9, adult; Z88.5 Allergy status to narcotic agent; Z88.8 Allergy status to other drugs, medicaments and biological substances; Z91.09 Other allergy status, other than to drugs and biological substances; Z91.030 Bee allergy status
CPT/HCPCS: 00840; 36415; 71045; 74177; 80048; 80053; 81001; 83605; 83690; 83735; 84703; 85025; 85610; 85730; 87040; 87502; 88304; 93005; 93010; 96361; 96372; 96375; 96376; 99285-25; A9270; C9803; G0378; J0330; J0694; J1100; J1200; J1644; J1885; J2250; J2405; J2543; J2704; J2765; J3010; J3475; J3480; J7060; J7121; Q9967; U0003

== ENCOUNTER 2023-03-22 05:49 | Emergency (ER) | payer OTHER ==
[~2023-03-22] VITALS: Ht 154.9 cm; Wt 94.0 kg
--- OUTSIDE RECORDS SUMMARY | ~2023-03-22 | XMS | Continuity of Care Document ---
Demographics + + + | Address | [address] | | | [place] [address] | + + + | Preferred Language | Unknown | + + + | Marital Status | | + + + | Faith Affiliation | Unknown | + + + | Race | White | + + + | Ethnic Group | Unknown | + + + Author + + + | Author | [facility] | + + + | Organization | [facility] | + + + | Address | [address] | | | [place] [address] | + + + | Phone | | + + + Care Team Providers + + + + | Care Docking Pilot Name | Role | Phone | + + + + Unavailable | Unavailable | + + + + Allergies and Intolerances + + + + + | date | description | facility | type | + + + + + | (no date) | hydrocodone | [facility] | (unknown) | | | bitartrate | | | + + + + + | (no date) | lisinopril | [facility] | (unknown) | + + + + + | (no date) | codeine | [facility] | (unknown) | + + + + + | (no date) | oxycodone | [facility] | (unknown) | + + + + + | (no date) | ibuprofen | [facility] | (unknown) | + + + + + Encounters No information. Functional Status No information. Immunizations No information. Medications No information. Problems + + + + | date | description | facility | + + + + | 2022-08-26 19:42 | OBESITY, UNSPECIFIED | [facility] | + + + + | 2022-08-26 19:42 | FLU DUE TO OTH IDENT | [facility] | | | INFLUENZA VIRUS W OTH RESP | | | | MA | | + + + + | 2022-08-26 19:42 | ACUTE APPENDICITIS WITH | [facility] | | | LOC PERITONITIS, W/O PERF | | + + + + | 2022-08-26 19:42 | UNSPECIFIED ACUTE | [facility] | | | APPENDICITIS | | + + + + | 2022-08-26 19:42 | BODY MASS INDEX (BMI) | [facility] | | | 38.0-38.9, ADULT | | + + + + | 2022-08-26 19:42 | ALLERGY STATUS TO NARCOTIC | [facility] | | | AGENT STATUS | | + + + + | 2022-08-26 19:42 | ALLERGY STATUS TO OTH | [facility] | | | DRUG/MEDS/BIOL SUBST STATUS | | | | | | + + + + | 2022-08-26 19:42 | BEE ALLERGY STATUS | [facility] | + + + + | 2022-08-26 19:42 | OTH ALLERGY STATUS, OTH | [facility] | | | THAN TO DRUGS AND BIOLG ARMANDO | | + + + + Procedures No information. Results/Labs No information. Social History No information. Vital Signs No information."
[~2023-03-22 05:49] MED LIST changes: +ACETAMINOPHEN500 MG PO
[2023-03-22] MEDS ORDERED: FLOMAX0.4 MG PO (06:08)
[2023-03-22] MEDS ORDERED: HYDROMORPHONE HC2 MG PO (06:08)
[2023-03-22] MEDS ORDERED: LEVOFLOXACIN500 MG PO (06:09)
[2023-03-22] MEDS ORDERED: PYRIDIUM200 MG PO (06:09)
[2023-03-22] MEDS ORDERED: ONDANSETRON HCL4 MG PO (06:12)
[2023-03-22 07:15] VITALS: BP 98/60
== END 2023-03-22 07:17 | disposition home or self-care (01) ==
LOC: ED 05:49
DX: N13.2 Hydronephrosis with renal and ureteral calculous obstruction (principal); Z88.5 Allergy status to narcotic agent; Z88.8 Allergy status to other drugs, medicaments and biological substances; Z79.899 Other long term (current) drug therapy
CPT/HCPCS: 36415; 80053; 85025; 96374; 96375; 99284 25; J1170; J2405; J7121

== ENCOUNTER 2023-05-30 18:50 | Emergency (ER) | payer OTHER ==
[~2023-05-30] VITALS: Ht 154.9 cm; Wt 93.4 kg
[~2023-05-30 18:50] MED LIST changes: +FLOMAX0.4 MG PO; +HYDROMORPHONE HC2 MG PO; +LEVOFLOXACIN500 MG PO; +ONDANSETRON HCL4 MG PO; +PYRIDIUM200 MG PO
[2023-05-30 19:44] LABS: BILIRUBIN, URINE NEGATIVE (negative); BLOOD/HGB, URINE TRACE-I (Negative); KETONE, URINE NEGATIVE (Negative); LEUK ESTERASE, URINE NEGATIVE (negative); NITRITE, URINE NEGATIVE (negative); PH, URINE 5.5 (5-7)
[2023-05-30 19:53] LABS: BACTERIA, URINE RARE /hpf (negative); CASTS, URINE NONE SEEN \\lpf; COLLECTION TYPE, URINE CLEAN CATCH; CRYSTALS, URINE NONE SEEN (0-1+); EPITHELIAL CELLS, URINE SQUAMOUS 3+ /lpf (0-1+); REFLEX CULTURE, URINE No (No); WHITE BLOOD CELLS, URINE 0-1 /HPF (0-5)
[2023-05-30 20:02] LABS: BASOPHILS 0.6 % (0-2); EOSINOPHILS 2.1 % (0-6); HEMOGLOBIN 12.4 g/dL (12.0-18.0); LYMPHOCYTES 26.5 % (24-44); MCHC 32.7 g/dl (30-36); MCV 85.5 fl (81-99); MONOCYTES 5.6 % (0-12); NEUTROPHILS 65.2 % (39-80); PLATELET COUNT 295 K/uL (140-440); RBC 4.44 M/ul (4.3-5.7); RDW 14.1 (10.5-15.0)
[2023-05-30 20:20] LABS: ALBUMIN 3.8 g/dL (3.4-5.0); ALBUMIN/GLOBULIN RATIO 0.97 (1.1-2.4); ANION GAP 15.2 (7-21); BILIRUBIN, TOTAL 0.3 ng/dL (0.2-1.0); BUN/CREATININE RATIO 13.63 (6.0-28.6); CALCIUM 9.2 mg/dL (8.5-10.1); CREATININE, SERUM 0.88 mg/dL (0.55-1.02); MAGNESIUM 1.8 mg/dL (1.8-2.4); POTASSIUM 3.2 mmol/L (3.5-5.1); PROTEIN, TOTAL 7.7 g/dL (6.4-8.2)
[2023-05-30] MEDS ORDERED: ONDANSETRON ODT8 MG PO (22:58)
[2023-05-30 23:09] VITALS: BP 107/86
== END 2023-05-30 23:11 | disposition home or self-care (01) ==
LOC: ED 18:50
PROVIDERS: Emergency Medicine
DX: R10.9 Unspecified abdominal pain (principal); D72.829 Elevated white blood cell count, unspecified; Z88.5 Allergy status to narcotic agent; Z88.6 Allergy status to analgesic agent; Z88.8 Allergy status to other drugs, medicaments and biological substances
CPT/HCPCS: 36415; 74176; 80053; 81001; 83690; 83735; 84703; 85025; 96374; 99284-25; A9270; J2405

== ENCOUNTER 2024-01-20 18:01 | Emergency (ER) | payer OTHER ==
[~2024-01-20] VITALS: Ht 154.9 cm; Wt 95.4 kg
[~2024-01-20 18:01] MED LIST changes: +CYCLOBENZAPRINE10 MG PO; +KETOROLAC TROME10 MG PO; +ONDANSETRON ODT8 MG PO; +VENTOLIN HFA18 GM INH
[2024-01-20 18:42] LABS: BASOPHILS 0.3 % (0-2); EOSINOPHILS 1.3 % (0-6); HEMATOCRIT 37.5 % (35.0-50.0); HEMOGLOBIN 12.1 g/dL (12.0-18.0); MCH 27.8 (27-36); MCHC 32.4 g/dl (30-36); MCV 85.9 fl (81-99); MONOCYTES 7.6 % (0-12); NEUTROPHILS 67.8 % (39-80); PLATELET COUNT 291 K/uL (140-440); RBC 4.36 M/ul (4.3-5.7); RDW 15.2 (10.5-15.0)
[2024-01-20 18:47] LABS: INR 0.95 (0.80-1.30)
[2024-01-20 18:52] LABS: ALBUMIN 3.3 g/dL (3.4-5.0); ALBUMIN/GLOBULIN RATIO 0.85 (1.1-2.4); ANION GAP 15.4 (7-21); BILIRUBIN, TOTAL 0.4 ng/dL (0.2-1.0); BUN/CREATININE RATIO 10.2 (6.0-28.6); CALCIUM 8.2 mg/dL (8.5-10.1); CREATININE, SERUM 0.98 mg/dL (0.55-1.02); POTASSIUM 3.4 mmol/L (3.5-5.1); PROTEIN, TOTAL 7.2 g/dL (6.4-8.2)
[2024-01-20] MEDS ORDERED: BENZONATATE 100 MG CAP PO ONE (19:15)
[2024-01-20] MEDS ORDERED: diphenhydrAMINE HCL 50 MG/ML VIAL IV ONE (19:45)
[2024-01-20] MEDS ORDERED: ACETAMINOPHEN 500 MG TAB PO ONE (20:15)
[2024-01-20] MEDS ORDERED: DIPHENHYDRAMINE50 M1 PO (20:36)
[2024-01-20] MEDS ORDERED: BENZONATATE100 MG PO (20:36)
[2024-01-20] MEDS ORDERED: ZYRTEC10 MG PO (20:36)
[2024-01-20 20:48] VITALS: BP 113/53
--- NOTE | 2024-01-21 18:30 | EKG ---
[facility] [address] [facility] [place] [address] Signed Normal sinus rhythm with sinus arrhythmia Normal ECG When compared with ECG of 08-JAN-2024 15:21, No significant change was found Confirmed by SALVADOR MCKEON MD ([id number]) on 01/21/2024 6:30:54 PM Electronically Signed By: SALVADOR MCKEON 01/21/24 1830 PATIENT NAME: ZEE ARREGUIN Electrocardiogram DATE OF : [birth year] PHYSICIAN: SALVADOR MCKEON REPORT #: [id number] REPORT IS CONFIDENTIAL AND NOT TO BE RELEASED WITHOUT AUTHORIZATION
== END 2024-01-20 20:49 | disposition home or self-care (01) ==
LOC: ED 18:01
PROVIDERS: Emergency Medicine
DX: R05.9 Cough, unspecified (principal); R09.1 Pleurisy; R11.2 Nausea with vomiting, unspecified; G43.909 Migraine, unspecified, not intractable, without status migrainosus; Z88.5 Allergy status to narcotic agent; Z88.8 Allergy status to other drugs, medicaments and biological substances; Z79.899 Other long term (current) drug therapy
CPT/HCPCS: 36415; 71045; 71260; 80053; 84703; 85025; 85379; 85610; 93005; 93010; 99285-25; A9270; J1200; Q9967

== ENCOUNTER 2024-03-09 20:19 | Emergency (ER) | payer OTHER ==
[~2024-03-09] VITALS: Ht 154.9 cm; Wt 92.0 kg
[~2024-03-09 20:19] MED LIST changes: +BENZONATATE100 MG PO; +DIPHENHYDRAMINE50 M1 PO; +ZYRTEC10 MG PO
[2024-03-09] MEDS ORDERED: PENICILLIN G BENZATHINE 1.2 MUNITS/2 ML SYR IM ONE (21:30)
[2024-03-09] MEDS ORDERED: DEXAMETHASONE SOD PHOS 10 MG/ML VIAL PO ONE (21:30)
[2024-03-09 22:16] VITALS: BP 110/82
== END 2024-03-09 22:17 | disposition home or self-care (01) ==
LOC: ED 20:19
DX: J03.00 Acute streptococcal tonsillitis, unspecified (principal); I10 Essential (primary) hypertension; Z88.5 Allergy status to narcotic agent; Z88.6 Allergy status to analgesic agent; Z88.8 Allergy status to other drugs, medicaments and biological substances; Z79.899 Other long term (current) drug therapy
CPT/HCPCS: 87651; 96372; 99284-25; J0561; J1100

== ENCOUNTER 2024-05-18 20:09 | Emergency (ER) | payer OTHER ==
[~2024-05-18] VITALS: Ht 154.9 cm; Wt 89.0 kg
[2024-05-18] MEDS ORDERED: IBLOOD GLUCOSE TEST STRIP 1 EA TEST XX ONE (22:00)
[2024-05-18 22:04] LABS: BASOPHILS 0.6 % (0-2); EOSINOPHILS 1.3 % (0-6); HEMATOCRIT 37.9 % (35.0-50.0); HEMOGLOBIN 12.7 g/dL (12.0-18.0); LYMPHOCYTES 19.8 % (24-44); MCH 28.2 (27-36); MCHC 33.6 g/dl (30-36); MCV 84.1 fl (81-99); NEUTROPHILS 72.3 % (39-80); PLATELET COUNT 283 K/uL (140-440); RDW 14.2 (10.5-15.0)
[2024-05-18 22:24] LABS: ALBUMIN 3.9 g/dL (3.4-5.0); ALBUMIN/GLOBULIN RATIO 0.98 (1.1-2.4); ALKALINE PHOSPHATASE 80 U/L (46-116); ALT (SGPT) 35 U/L (14-59); ANION GAP 14.3 (7-21); AST (SGOT) 16 U/L (15-37); BILIRUBIN, TOTAL 0.4 ng/dL (0.2-1.0); BUN/CREATININE RATIO 14.28 (6.0-28.6); CALCIUM 9.5 mg/dL (8.5-10.1); CARBON DIOXIDE 25 mmol/L (21-32); CHLORIDE 104 mmol/L (98-107); CREATININE, SERUM 1.05 mg/dL (0.55-1.02); GLOMERULAR FILTRATION RATE,EST 72 mL/min (>60); MAGNESIUM 1.9 mg/dL (1.8-2.4); POTASSIUM 3.3 mmol/L (3.5-5.1); PROTEIN, TOTAL 7.9 g/dL (6.4-8.2); UREA NITROGEN 15 mg/dL (7-18)
[2024-05-18] MEDS ORDERED: LACTATED RINGER'S 1,000 ML IV ONE (22:45)
[2024-05-18 23:20] LABS: BILIRUBIN, URINE NEGATIVE (negative); BLOOD/HGB, URINE MODERATE (Negative); KETONE, URINE NEGATIVE (Negative); LEUK ESTERASE, URINE NEGATIVE (negative); NITRITE, URINE NEGATIVE (negative); PH, URINE 5.5 (5-7)
[2024-05-18] MEDS ORDERED: ACETAMINOPHEN 500 MG TAB PO ONE (23:30)
[2024-05-18 23:36] LABS: BACTERIA, URINE 1+ /hpf (negative); CASTS, URINE NONE SEEN \\lpf; COLLECTION TYPE, URINE CLEAN CATCH; CRYSTALS, URINE NONE SEEN (0-1+); EPITHELIAL CELLS, URINE SQUAMOUS 1+ /lpf (0-1+); REFLEX CULTURE, URINE No (No)
[2024-05-19] MEDS ORDERED: ondansetron HCL 4 MG/2 ML VIAL IV ONE (00:30)
[2024-05-19] MEDS ORDERED: LACTATED RINGER'S 1,000 ML IV ONE (01:00)
[2024-05-19] MEDS ORDERED: ONDANSETRON 4 MG HOME.PACK SL ONE (02:00)
[2024-05-19 02:14] VITALS: BP 118/88
--- NOTE | 2024-05-20 18:39 | EKG ---
[facility] [address] [facility] [place] [address] Signed Sinus tachycardia Cannot rule out Anterior infarct , age undetermined Abnormal ECG When compared with ECG of 20-JAN-2024 18:58, Nonspecific T wave abnormality now evident in Anterior leads Confirmed by Andrea Hyde MD ([id number]) on 05/20/2024 6:39:08 PM Electronically Signed By: ANDREA HYDE MD 05/20/24 1839 PATIENT NAME: ZEE ARREGUIN Electrocardiogram DATE OF : [birth year] PHYSICIAN: ANDREA HYDE MD REPORT #: [id number] REPORT IS CONFIDENTIAL AND NOT TO BE RELEASED WITHOUT AUTHORIZATION
== END 2024-05-19 02:15 | disposition home or self-care (01) ==
LOC: ED 20:09
PROVIDERS: Internal Medicine
DX: E86.0 Dehydration (principal); R55 Syncope and collapse; R00.0 Tachycardia, unspecified; G43.909 Migraine, unspecified, not intractable, without status migrainosus; Z87.442 Personal history of urinary calculi; Z88.5 Allergy status to narcotic agent; Z88.6 Allergy status to analgesic agent; Z88.8 Allergy status to other drugs, medicaments and biological substances
CPT/HCPCS: 36415; 70450; 71045; 80053; 81001; 83735; 84443; 84484; 84703; 85025; 93005; 93010; 96361; 96374; 99284-25; A9270; J2405; J7121

== ENCOUNTER 2024-05-19 12:20 | Emergency (ER) | payer OTHER ==
[~2024-05-19] VITALS: Ht 154.9 cm; Wt 93.1 kg
[2024-05-19] MEDS ORDERED: ondansetron HCL 4 MG/2 ML VIAL IV ONE (12:45)
[2024-05-19 13:00] LABS: BASOPHILS 0.6 % (0-2); EOSINOPHILS 4.8 % (0-6); HEMATOCRIT 36.9 % (35.0-50.0); HEMOGLOBIN 12.4 g/dL (12.0-18.0); LYMPHOCYTES 27.9 % (24-44); MCH 28.1 (27-36); MCHC 33.6 g/dl (30-36); MCV 83.8 fl (81-99); MONOCYTES 7.4 % (0-12); NEUTROPHILS 59.3 % (39-80); PLATELET COUNT 249 K/uL (140-440); RBC 4.41 M/ul (4.3-5.7); RDW 14.3 (10.5-15.0)
[2024-05-19] MEDS ORDERED: SODIUM CHLORIDE 0.9% 1,000 ML IV PRN (13:00)
[2024-05-19 13:14] LABS: ALBUMIN 3.2 g/dL (3.4-5.0); ALBUMIN/GLOBULIN RATIO 0.89 (1.1-2.4); ANION GAP 10.6 (7-21); BILIRUBIN, TOTAL 1.6 ng/dL (0.2-1.0); BUN/CREATININE RATIO 10.52 (6.0-28.6); CALCIUM 8.7 mg/dL (8.5-10.1); CREATININE, SERUM 0.95 mg/dL (0.55-1.02); POTASSIUM 3.6 mmol/L (3.5-5.1); PROTEIN, TOTAL 6.8 g/dL (6.4-8.2)
[2024-05-19 13:50] VITALS: BP 116/70
== END 2024-05-19 13:50 | disposition home or self-care (01) ==
LOC: ED 12:20
PROVIDERS: Emergency Medicine
DX: S06.0XAA Concussion with loss of consciousness status unknown, initial encounter (principal); W22.8XXA Striking against or struck by other objects, initial encounter; R11.2 Nausea with vomiting, unspecified; G43.909 Migraine, unspecified, not intractable, without status migrainosus; Z88.5 Allergy status to narcotic agent; Z88.6 Allergy status to analgesic agent; Z88.8 Allergy status to other drugs, medicaments and biological substances
CPT/HCPCS: 36415; 70450; 80053; 83690; 85025; 96374; 99284-25; J2405; J7030

== ENCOUNTER 2024-09-06 07:12 | Emergency (ER) | payer OTHER ==
[~2024-09-06] VITALS: Ht 154.9 cm; Wt 93.4 kg
[2024-09-06] MEDS ORDERED: ACETAMINOPHEN 500 MG TAB PO ONE (07:30)
[2024-09-06] MEDS ORDERED: PROMETHAZINE HCL 25 MG TAB PO ONE (07:30)
[2024-09-06] MEDS ORDERED: ONDANSETRON 4 MG TAB ODT SL ONE (07:30)
[2024-09-06] MEDS ORDERED: PROMETHAZINE HC25 M1 PO (07:37)
[2024-09-06 07:55] VITALS: BP 100/85
== END 2024-09-06 07:55 | disposition home or self-care (01) ==
LOC: ED 07:12
DX: B34.9 Viral infection, unspecified (principal); Z88.5 Allergy status to narcotic agent; Z88.6 Allergy status to analgesic agent; Z88.8 Allergy status to other drugs, medicaments and biological substances
CPT/HCPCS: 99283; A9270

== ENCOUNTER 2024-12-05 20:30 | Emergency (ER) | payer OTHER, BC ==
[~2024-12-05] VITALS: Ht 154.9 cm; Wt 93.6 kg
[~2024-12-05 20:30] MED LIST changes: +PROMETHAZINE HC25 M1 PO
[2024-12-05] MEDS ORDERED: CEPHALEXIN500 M1 PO (21:30)
[2024-12-05] MEDS ORDERED: CEPHALEXIN MONOHYDRATE 500 MG HOME.PACK PO ONE (21:30)
[2024-12-05] MEDS ORDERED: DIPHTH,PERTUSS(ACELL),TET VAC 0.5 ML SYRINGE IM ONE (21:30)
[2024-12-05 22:06] VITALS: BP 121/78
== END 2024-12-05 22:06 | disposition home or self-care (01) ==
LOC: ED 20:30
DX: S50.812A Abrasion of left forearm, initial encounter (principal); Z88.5 Allergy status to narcotic agent; Z88.8 Allergy status to other drugs, medicaments and biological substances; V29.91XA Electric (assisted) bicycle rider (driver) (passenger) injured in unspecified traffic accident, initial encounter
CPT/HCPCS: 90471; 90715; 99282-25; A9270

== ENCOUNTER 2024-12-08 09:34 | Emergency (ER) | payer OTHER, BC ==
[~2024-12-08] VITALS: Ht 154.9 cm; Wt 93.6 kg
[~2024-12-08 09:34] MED LIST changes: +CEPHALEXIN500 M1 PO
[2024-12-08] MEDS ORDERED: LORazepam 0.5 MG TAB PO ONE (10:30)
[2024-12-08 13:11] VITALS: BP 132/91
== END 2024-12-08 13:11 | disposition home or self-care (01) ==
LOC: ED 09:34
DX: S50.812D Abrasion of left forearm, subsequent encounter (principal); S50.312D Abrasion of left elbow, subsequent encounter; V18.0XXD Pedal cycle driver injured in noncollision transport accident in nontraffic accident, subsequent encounter; Y92.481 Parking lot as the place of occurrence of the external cause; I10 Essential (primary) hypertension; Z71.1 Person with feared health complaint in whom no diagnosis is made; Z88.5 Allergy status to narcotic agent; Z88.6 Allergy status to analgesic agent; Z88.8 Allergy status to other drugs, medicaments and biological substances
CPT/HCPCS: 73080; 99283

== ENCOUNTER 2025-02-01 19:14 | Emergency (ER) | payer BC, OTHER ==
[~2025-02-01] VITALS: Ht 154.9 cm; Wt 93.0 kg
[2025-02-01] MEDS ORDERED: AMOXICILLIN500 MG PO (21:17)
[2025-02-01] MEDS ORDERED: AMOXICILLIN 500 MG HOME.PACK PO ONE (21:30)
[2025-02-01 21:36] VITALS: BP 125/91
== END 2025-02-01 21:36 | disposition home or self-care (01) ==
LOC: ED 19:14
DX: J02.0 Streptococcal pharyngitis (principal); Z88.5 Allergy status to narcotic agent; Z88.8 Allergy status to other drugs, medicaments and biological substances
CPT/HCPCS: 87651; 99283